=== PATIENT | female | born 1980 | race Caucasian/White ===

== ENCOUNTER 2018-04-15 16:13 | Emergency (ER) | payer BC ==
[~2018-04-15] VITALS: Ht 162.6 cm; Wt 116.3 kg
[~2018-04-15 16:13] MED LIST: BACTRIM,SEPT1 TABLET PO; DOXYCYCLINE HY100 MG PO; METHYLPREDNISOLO4 M1 PO; NORCO 5/3251 TABLET PO; TYLENOL WITH C1 EACH PO
[2018-04-15 19:04] LABS: HEMATOCRIT 41.6 % (36.0-46.0); HEMOGLOBIN 13.9 G/DL (11.9-15.5); MCH 28.3 PG (29.0-34.0); MCHC 33.4 G/DL (30.0-36.0); MCV 84.7 FL (83-99); PLATELET COUNT 186 K/uL (156-360); RBC DIS.WIDTH-CV 13.5 % (11.8-14.6); RBC DIS.WIDTH-SD 42.4 % (39-53); RED BLOOD COUNT 4.91 M/uL (3.80-5.20); WHITE BLOOD COUNT 5.2 K/uL (4.1-10.2)
[2018-04-15 19:25] LABS: CHLORIDE 108 mEq/L (99-109); POTASSIUM 3.8 mEq/L (3.7-5.4); SODIUM 139 mEq/L (136-147)
[2018-04-15 19:27] LABS: GLUCOSE 117 mg/dL (70-99)
[2018-04-15 19:31] LABS: CREATININE 0.7 mg/dL (0.6-1.3); GFR ESTIMATE (CALCULATED) > 59 mL/min/
[2018-04-15 19:32] LABS: UREA NITROGEN (BUN) 12 mg/dL (9-23)
[2018-04-15 19:40] LABS: QUANTITATIVE HCG < 4.0 MIU/ML
[2018-04-15] MEDS ORDERED: ZOFRAN ODT4 MG PO (19:49)
[2018-04-15 19:55] VITALS: BP 117/72
== END 2018-04-15 20:05 | disposition home or self-care (01) ==
LOC: EME 16:13
PROVIDERS: Physician Assistant
DX: G43.909 Migraine, unspecified, not intractable, without status migrainosus (principal); Z88.0 Allergy status to penicillin
CPT/HCPCS: 80048; 84702; 85027; 99281; 99284; J1885; J3010; J7030